=== PATIENT | female | born 1940 | race Caucasian/White ===

== ENCOUNTER → 2016-06-13 | Outpatient (CLI) | payer MEDICARE, OTHER ==
[~2016-06-13] MED LIST: AMLODIPINE-BENA1 CAP PO; FISH OIL 1,2001 CAP PO; GARLIC1000 MG PO; OSTEO BI-FLEX1 EAC2 PO
--- NOTE | ~2016-06-13 | MY6 ---
[facility] A Service [facility] RADIOLOGY TEXT RESULTS PATIENT: BROOKLYN PEGUERO LOCATION: [facility] : 38 UNIT #: [id number] AGE: [address]: Emre Alonso MD SEX: F ORDER DR: [id number] [facility] [address] [place], [place] [address] [id number] O MR#: [id number] Acc #: [id number] NAME: BROOKLYN PEGUERO : 1940 SEX: F STUDY DATE/TIME: 06/13/2016 11:36 UNIT: [facility] ROOM: STUDY DESCRIPTION: MY Mammogram Dx Dig Jaya Attending Physician: Emre Alonso M.D. Referring Physician: Emre Alonso M.D. Ordering Physician: Emre Alonso M.D. Primary Care Physician: Tyron Polanco M.D. MEDICAL IMAGING REPORT This report is preliminary unless electronic signature is present EXAM Diagnostic bilateral mammogram INDICATION Previous right breast cancer. No current complaints. COMPARISON 06/06/2015, 06/15/2013, 04/15/2013. FINDINGS MLO and CC digital views of each breast were obtained. The exam was reviewed with an FDA-approved CAD device. Straight and lateral views of each breast were also obtained. There are scattered fibroglandular densities present. There are no masses suspicious calcifications. There has been no change from the prior study. IMPRESSION No change and no evidence of malignancy. Patients over the age of 40 are entered into a reminder system with target due date for the next mammogram. A result letter will also be sent to the patient. BIRADS: 2 Benign Finding Dictated by... Zion Richardson M.D. THIS IS AN ELECTRONICALLY VERIFIED REPORT Zion Richardson M.D. at 06/13/2016 4:55 PM ANANDA/nelli TD: 06/13/2016 14:09 [facility] A Service [facility] RADIOLOGY TEXT RESULTS PATIENT: BROOKLYN PEGUERO LOCATION: [facility] : 38 UNIT #: [id number] AGE: [address]: Emre Alonso MD SEX: F ORDER DR: OMKAR #: [id number] MEDICAL IMAGING REPORT COPY
== END | disposition home or self-care (01) ==
LOC: CMAM 11:17
DX: Z08 Encounter for follow-up examination after completed treatment for malignant neoplasm (principal); Z85.3 Personal history of malignant neoplasm of breast
CPT/HCPCS: G0204